=== PATIENT | female | born 1995 | race African-American/Black ===

== ENCOUNTER 2016-07-01 11:30 | Emergency (ER) | payer MEDICAID ==
[~2016-07-01] VITALS: Ht 152.4 cm; Wt 55.0 kg
[~2016-07-01 11:30] MED LIST: IBUP600 PO
[2016-07-01 11:32] VITALS: BP 123/73; PULSE 72; RESP 16; TEMP 98; O2SAT 98
--- NOTE | 2016-07-01 12:14 | PD ---
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 Patient denies fever, chills, urinary symptoms. Patient denies . Patient states she did have some similar symptoms in the past months ago. Patient states no new sexual partner, but she is "unsure of her boyfriend". Patient has no other constitutional symptoms. She has no known drug allergies. PFSH Past Medical History Medical History: Denies Significant Hx Hx Anticoagulant Therapy: No Cardiovascular Problems: No Chemotherapy: No Cerebrovascular Accident: No Diabetes: No Diminished Hearing: No Respiratory: No Immunizations Current: Yes ?: Unknown LMP: LAST WEEK Menopausal: No : 0 Para: 0 Miscarriage: 0 : 0 Past Surgical History Surgical History: No Previous Surgery Section: No Social History Alcohol Use: No (rarely) Tobacco Use: Yes Substance Use: No Allergies-Medications (Allergen,Severity, Reaction): Coded Allergies: Penicillin (Verified Allergy, Intermediate, Hives, 07/01/16) Reported Meds & Prescriptions Reported Meds & Active Scripts Active No Active Prescriptions or Reported Medications Review of Systems Except as stated in HPI: all other systems reviewed are Neg General / Constitutional: No: Fever Eyes: No: Visual changes HENT: No: Headaches Cardiovascular: No: Chest Pain or Discomfort Respiratory: No: Shortness of Breath Gastrointestinal: No: Abdominal Pain Genitourinary: No: Dysuria Musculoskeletal: No: Pain Skin: No Rash Neurologic: No: Weakness Psychiatric: No: Depression Endocrine: No: Polydipsia Hematologic/Lymphatic: No: Easy Bruising Physical Exam Narrative GENERAL: Patient appears in no acute distress. SKIN: Warm and dry. HEAD: Atraumatic. Normocephalic. EYES: Pupils equal and round. No scleral icterus. No injection or drainage. ENT: No nasal bleeding or discharge. Mucous membranes pink and moist. NECK: Trachea midline. No JVD. CARDIOVASCULAR: Regular rate and rhythm. RESPIRATORY: No accessory muscle use. Clear to auscultation. Breath sounds equal bilaterally. GASTROINTESTINAL: Abdomen soft, non-tender, nondistended. Hepatic and splenic margins not palpable. PELVIC: Pelvic exam performed with nursing truck driver rubbish collector. Outer genitalia appear within normal limits. No obvious rash. Pelvic exam shows no significant discharge. Viral cultures, wet prep, and GC chlamydia are obtained. MUSCULOSKELETAL: Extremities without clubbing, cyanosis, or edema. No obvious deformities. NEUROLOGICAL: Awake and alert. No obvious cranial nerve deficits. Motor grossly within normal limits. Five out of 5 muscle strength in the arms and legs. Normal speech. PSYCHIATRIC: Appropriate mood and affect; insight and judgment normal. Data Data Last Documented VS Vital Signs Date Time Temp Pulse Resp B/P Pulse Ox O2 Delivery O2 Flow Rate FiO2 07/01/16 11:32 98.0 72 16 123/73 98 Room Air Orders Complete Blood Count With Diff (07/01/16 12:00) Comprehensive Metabolic Panel (07/01/16 12:00) Gc And Chlamydia Pcr (07/01/16 12:00) Wet Prep Profile (07/01/16 12:00) Urinalysis - C+S If Indicated (07/01/16 12:00) Herpes Simplex Virus Culture (07/01/16 12:00) Ed Urine Pregnancytest Poc (07/01/16 12:00) Urine Culture (07/01/16 12:15) Ceftriaxone Inj (Rocephin Inj) (07/01/16 13:00) Ceftriaxone Inj (Rocephin Inj) (07/01/16 13:15) Azithromycin (Zithromax) (07/01/16 14:15) Labs Laboratory Tests Test 07/01/16 07/01/16 07/01/16 12:15 12:31 13:00 Urine Color YELLOW Urine Turbidity CLEAR Urine pH 6.5 Urine Specific [place] 1.026 Urine Protein TRACE mg/dL Urine Glucose (UA) NEG mg/dL Urine Ketones NEG mg/dL Urine Occult Blood NEG Urine Nitrite NEG Urine Bilirubin NEG Urine Urobilinogen LESS THAN 2.0 MG/DL Urine Leukocyte Esterase LARGE Urine RBC 4 /hpf Urine WBC 12 /hpf Urine Squamous Epithelial 3 /hpf Cells Urine Bacteria RARE /hpf Urine Mucus MOD /lpf Microscopic Urinalysis Comment CULTURE INDICATED White Blood Count 7.9 TH/MM3 Red Blood Count 5.37 MIL/MM3 Hemoglobin 11.3 GM/DL Hematocrit 35.5 % Mean Corpuscular Volume 66.1 FL Mean Corpuscular Hemoglobin 21.0 PG Mean Corpuscular Hemoglobin 31.8 % Concent Red Cell Distribution Width 16.8 % Platelet Count 432 TH/MM3 Mean Platelet Volume 7.9 FL Neutrophils (%) (Auto) 51.3 % Lymphocytes (%) (Auto) 37.8 % Monocytes (%) (Auto) 8.5 % Eosinophils (%) (Auto) 1.8 % Basophils (%) (Auto) 0.6 % Neutrophils # (Auto) 4.1 TH/MM3 Lymphocytes # (Auto) 3.0 TH/MM3 Monocytes # (Auto) 0.7 TH/MM3 Eosinophils # (Auto) 0.1 TH/MM3 Basophils # (Auto) 0.0 TH/MM3 CBC Comment AUTO DIFF Differential Comment AUTO DIFF CONFIRMED Platelet Estimate HIGH Platelet Morphology Comment NORMAL Ovalocytes 1+ Keratocytes OCC Sodium Level 140 MEQ/L Potassium Level 4.0 MEQ/L Chloride Level 104 MEQ/L Carbon Dioxide Level 28.2 MEQ/L Anion Gap 8 MEQ/L Blood Urea Nitrogen 8 MG/DL Creatinine 0.68 MG/DL Estimat Glomerular Filtration 132 ML/MIN Rate Random Glucose 80 MG/DL Calcium Level 8.5 MG/DL Total Bilirubin 0.2 MG/DL Aspartate Amino Transf 8 U/L (AST/SGOT) Alanine Aminotransferase 21 U/L (ALT/SGPT) Alkaline Phosphatase 75 U/L Total Protein 7.5 GM/DL Albumin 3.5 GM/DL Clue Cells (Wet Prep) NONE SEEN Vaginal Trichomonas (Wet Prep) NONE SEEN Vaginal Yeast (Wet Prep) NONE SEEN MDM Medical Decision Making Medical Screen Exam Complete: Yes Emergency Medical Condition: Yes Differential Diagnosis Urinary tract infection. Dysuria. Pelvic inflammatory disease. Gonorrhea, chlamydia. Herpes. Narrative Course Patient is medically stable at time of exam. Labs ordered including CBC, CMP, and urinalysis. Wet prep, GC chlamydia, and herpes viral culture sent. CBC and CMP are within normal limits. Urinalysis is suggestive of urinary tract infection. Patient given 500 mg Rocephin IM. Wet prep was negative for clue cells, yeast, or Trichomonas. Patient is given azithromycin 1200 mg by mouth once. Patient was discharged out with Keflex twice a day 7 days. GC and chlamydia is pending, viral culture is pending, as well as urinary culture. Patient is recommended [facility] for further evaluation and treatment as needed. Patient can always return to the emergency Department with worsening symptoms if necessary. Diagnosis Primary Impression: Dysuria Additional Impression: Vaginal discharge Referrals: [facility] 1 week Patient Instructions: Dysuria (ED), General Instructions, Sexually Transmitted Diseases (ED) Med/Other Pt SpecificInfo: Prescription(s) given Scripts Cephalexin (Keflex)500 Mg [id number] Mg PO BID #14 CAP Prov:Jo Ann Diaz MD 07/01/16 Disposition: 01 DISCHARGE HOME Condition: Stable Javad Gill Jul 01, 2016 12:14
[2016-07-01 12:37] LABS: BACTERIA, URINE RARE /hpf; BLOOD, URINE NEG (NEG); GLUCOSE,URINE NEG (NEG); KETONE, URINE NEG (NEG); MUCUS URINE MOD /lpf (OCC); NITRITE,URINE NEG (NEG); PH, URINE 6.5 (5.0-8.5); SQUAMOUS EPITHELIAL CELL URINE 3 /hpf (0-5); URINE COLOR YELLOW (YELLW/STRAW)
[2016-07-01 12:40] LABS: COMMENT (UR) CULTURE INDICATED; CULTURE IF INDICATED CULTURE INDICATED
[2016-07-01 12:58] LABS: AUTOMATED NEUTROPHIL # 4.1 TH/MM3 (1.8-7.7); BASOPHIL % 0.6 % (0.0-2.0); EOSINOPHIL # 0.1 TH/MM3 (0-0.4); EOSINOPHIL % 1.8 % (0.0-4.0); HEMATOCRIT 35.5 % (35.0-46.0); LYMPH % 37.8 % (9.0-44.0); MEAN CELL VOLUME 66.1 FL (80.0-100.0); MEAN CORPUSCULAR HGB CONC 31.8 % (32.0-36.0); MONO % 8.5 % (0.0-8.0); NEUT % 51.3 % (16.0-70.0); PLATELET COUNT 432 TH/MM3 (150-450); RED BLOOD COUNT 5.37 MIL/MM3 (4.00-5.30); RED CELL DISTRIBUTION WIDTH 16.8 % (11.6-17.2); WHITE BLOOD COUNT 7.9 TH/MM3 (4.0-11.0)
[2016-07-01] MEDS ORDERED: cefTRIAXone INJ 1,000 MG in SODIUM CHLORIDE 0.9% INJ 100 ML IV ONE (13:00)
[2016-07-01 13:03] LABS: HEMO FLAGS AUTO DIFF
[2016-07-01 13:10] LABS: ANION GAP 8 MEQ/L (5-15); AST (GOT) 8 U/L (15-37); BICARBONATE 28.2 MEQ/L (21.0-32.0); BLOOD UREA NITROGEN 8 MG/DL (7-18); CHLORIDE 104 MEQ/L (98-107); GLOMERULAR FILTRATION RATE 132 ML/MIN (>89); SODIUM (NA) 140 MEQ/L (136-145)
[2016-07-01 13:13] LABS: ALKALINE PHOSPHATASE 75 U/L (45-117); ALT (GPT) 21 U/L (10-53); TOTAL BILIRUBIN ADULT 0.2 MG/DL (0.2-1.0)
[2016-07-01 13:38] LABS: KERATOCYTES OCC (NORMAL); OVALOCYTES 1+ (NORMAL); PLATELET ESTIMATE SMEAR HIGH (NORMAL); PLATELET MORPHOLOGY NORMAL (NORMAL); SCAN/DIFF AUTO DIFF CONFIRMED
[2016-07-01] MEDS ORDERED: CEPH-460 PO (14:09)
[2016-07-01] MEDS ORDERED: AZITHROMYCIN 600 MG TAB PO ONE (14:15)
[2016-07-01 14:16] VITALS: BP 124/82; PULSE 66; RESP 20; O2SAT 100
[2016-07-01] MEDS ORDERED: AZITHROMYCIN 250 MG TAB PO ONE (14:30)
[2016-07-01 15:20] VITALS: BP 120/74; PULSE 79; RESP 20; O2SAT 100
[2016-07-01 18:38] LABS: CHLAMYDIA PCR NOT DETECTED (NOT DETECT); NEISSERIA PCR NOT DETECTED (NOT DETECT)
== END 2016-07-01 15:31 | disposition home or self-care (01) ==
LOC: NEPE 11:30
DX: R30.0 Dysuria (principal); N89.8 Other specified noninflammatory disorders of vagina; Z72.0 Tobacco use
CPT/HCPCS: 80053; 81001; 84703; 85025; 87086; 87210; 87255; 87491; 87591; 96372; 99283; J0696

== ENCOUNTER 2017-02-28 15:05 | Emergency (ER) | payer SELFPAY ==
[~2017-02-28] VITALS: Ht 152.4 cm; Wt 58.0 kg
[~2017-02-28 15:05] MED LIST changes: +CEPH-460 PO; -IBUP600 PO
[2017-02-28 15:06] VITALS: BP 115/70; PULSE 96; RESP 20; TEMP 98.6; O2SAT 98
--- NOTE | 2017-02-28 15:53 | PD ---
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 Patient believes she may be having a reaction to her son did so. She has been using the soap for a long time without any difficulty. Denies any vaginal discharge, abdominal pain, pelvic pain, urinary symptoms, or vaginal irritation. States the itching feels like it is on the inside. She has not done anything for her symptoms. She is sexually active and does not use control. PFSH Past Medical History Medical History: Denies Significant Hx Hx Anticoagulant Therapy: No Cardiovascular Problems: No Chemotherapy: No Cerebrovascular Accident: No Diabetes: No Diminished Hearing: No Respiratory: No Immunizations Current: Yes Tetanus Vaccination: > 5 Years ?: Not LMP: 02/24/17 Menopausal: No : 0 Para: 0 Miscarriage: 0 : 0 Past Surgical History Surgical History: No Previous Surgery Section: No Social History Alcohol Use: No (RARE) Tobacco Use: Yes Substance Use: Yes (CANNABIS ) Allergies-Medications (Allergen,Severity, Reaction): Coded Allergies: penicillin G (Unverified Allergy, Intermediate, 02/28/17) DENIES Reported Meds & Prescriptions Reported Meds & Active Scripts Active No Active Prescriptions or Reported Medications Review of Systems Except as stated in HPI: all other systems reviewed are Neg Physical Exam Narrative GENERAL: Well-nourished, well-developed female in no acute distress. Afebrile. Ambulatory. SKIN: Focused skin assessment warm/dry. HEAD: Normocephalic. EYES: No scleral icterus. No injection or drainage. NECK: Supple, trachea midline. No JVD or lymphadenopathy. CARDIOVASCULAR: Regular rate and rhythm without murmurs, gallops, or rubs. RESPIRATORY: Breath sounds equal bilaterally. No accessory muscle use. GENITOURINARY: Examined in the presence of a nurse. Normal external genitalia without lesions or erythema. No vaginal discharge. No pelvic tenderness to palpation. Data Data Last Documented VS Vital Signs Date Time Temp Pulse Resp B/P (MAP) Pulse Ox O2 Delivery O2 Flow Rate FiO2 02/28/17 15:06 98.6 96 20 115/70 (85) 98 MDM Medical Decision Making Medical Screen Exam Complete: Yes Emergency Medical Condition: Yes Medical Record Reviewed: Yes Differential Diagnosis Vaginitis, yeast infection, atopic dermatitis, allergic reaction Narrative Course 21-year-old female presents to the emergency room for evaluation of vaginal itching that started last night. Patient believes she may be having a reaction to this that she has been using for a long time. Denies any vaginal discharge, pelvic pain, or dysuria. She was examined in the presence of a nurse. Physical exam is unremarkable. No lesions, erythema, discharge, or foul odor. test is negative. I suspect early vaginal candidiasis. She was told to stop using the soap. Patient be discharged with prescription for Diflucan and told to follow-up with a provider network manager or return for worsening symptoms. She understands and agrees to plan. Diagnosis Primary Impression: Vaginal itching Referrals: Primary Care Physician Additional Instructions: Diflucan as directed. As discussed, use control to avoid . Follow-up the provider network manager. Return for worsening symptoms. Scripts No Active Prescriptions or Reported Meds Disposition: 01 DISCHARGE HOME Condition: Stable Leslie Ortega Feb 28, 2017 15:53
[2017-02-28] MEDS ORDERED: DIFL150T PO (15:54)
== END 2017-02-28 16:07 | disposition home or self-care (01) ==
LOC: NEPD 15:05
DX: N89.8 Other specified noninflammatory disorders of vagina (principal); Z72.0 Tobacco use
CPT/HCPCS: 99283

== ENCOUNTER 2017-06-12 17:12 | Emergency (ER) | payer SELFPAY ==
[~2017-06-12 17:12] MED LIST changes: -CEPH-460 PO; +DIFL150T PO
[2017-06-12 17:19] VITALS: BP 123/77; PULSE 92; RESP 12; TEMP 98; O2SAT 98
[2017-06-12] MEDS ORDERED: FLUT1SPR5 EACH NARE (20:53)
--- NOTE | 2017-06-12 20:54 | PD ---
HPI Chief Complaint: Cold / Flu Symptoms Time Seen by Provider: 19:30 Travel History International Travel<30 days: No Contact w/Intl Traveler<30days: No Traveled to known affect area: No History of Present Illness HPI 22-year-old female presents emergency department for evaluation of runny nose, cough and sore throat that started on . Patient has any fevers, chills, malaise. The cough is intermittent and nonproductive in nature. She denies any cigarette use, alcohol use or drug use. Patient denies any nausea, vomiting, vomiting or diarrhea. Patient has not tried any [id number] remedies at this time. PFSH Past Medical History Medical History: Denies Significant Hx Hx Anticoagulant Therapy: No Cardiovascular Problems: No Chemotherapy: No Cerebrovascular Accident: No Diabetes: No Diminished Hearing: No Respiratory: No Immunizations Current: Yes Tetanus Vaccination: Unknown ?: Not LMP: 06/11/17 Menopausal: No : 0 Para: 0 Miscarriage: 0 : 0 Past Surgical History Surgical History: No Previous Surgery Section: No Social History Alcohol Use: No (RARE) Tobacco Use: No Substance Use: Yes (CANNABIS ) Allergies-Medications (Allergen,Severity, Reaction): Coded Allergies: penicillin G (Unverified Allergy, Intermediate, 06/12/17) DENIES Reported Meds & Prescriptions Reported Meds & Active Scripts Active Flonase Nasal Coila (Fluticasone Nasal Coila) 50 Mcg/Act Coila 50 Mcg EACH NARE BID Review of Systems Except as stated in HPI: all other systems reviewed are Neg Physical Exam Narrative GENERAL: Well-nourished, well-developed 22-year-old female patient in no acute distress. Nontoxic appearing. SKIN: Focused skin assessment warm/dry. HEAD: Normocephalic. Atraumatic. EYES: No scleral icterus. No injection or drainage. THROAT: Mild pharyngeal injection and tonsillar hypertrophy, No exudates. Airway is patent. ENT: Mucosa pink and moist. No erythema or exudates. No uvular edema. No uvular , palatal, or tonsillar deviation. Airway patent. Nasal turbinates appear hypertrophic with small amount of purulent drainage. NECK: Supple, trachea midline. No JVD or lymphadenopathy. CARDIOVASCULAR: Regular rate and rhythm without murmurs, gallops, or rubs. RESPIRATORY: Breath sounds equal bilaterally. No accessory muscle use. GASTROINTESTINAL: Abdomen soft, non-tender, nondistended. MUSCULOSKELETAL: No cyanosis, or edema. BACK: Nontender without obvious deformity. No CVA tenderness. Data Data Last Documented VS Vital Signs Date Time Temp Pulse Resp B/P (MAP) Pulse Ox O2 Delivery O2 Flow Rate FiO2 06/12/17 21:05 06/12/17 17:19 98.0 92 12 98 Orders Orders Ed Discharge Order (06/12/17 20:54) MDM Medical Decision Making Medical Screen Exam Complete: Yes Emergency Medical Condition: Yes Differential Diagnosis Differential diagnoses include URI, viral syndrome, pharyngitis, bronchitis Narrative Course Upon assessment patient's symptoms and presentation are consistent with viral syndrome. Patient is afebrile at our facility and states she has not been running a fever at home. Patient is discharged home with prescription for Flonase for nasal congestion, instructions for supportive care and to return to the emergency Department with any worsening condition. Diagnosis Primary Impression: Viral syndrome Referrals: Primary Care Physician Patient Instructions: General Instructions, Viral Syndrome (ED) Additional Instructions: Please return to emergency department if your symptoms return or worsen. Follow up with your primary care provider. Take medications as prescribed. Alternate ibuprofen and Tylenol as needed for pain or fevers. Supportive care, stay hydrated, get enough rest, diet as tolerated. Med/Other Pt SpecificInfo: Prescription(s) given Scripts Fluticasone Nasal Coila (Flonase Nasal Coila) 50 Mcg/Act Coila 50 MCG EACH NARE BID for Allergies, #1 BOTTLE 0 Refills Prov: Andreea James 06/12/17 Disposition: 01 DISCHARGE HOME Condition: Stable Andreea James Jun 12, 2017 20:54
== END 2017-06-12 21:17 | disposition home or self-care (01) ==
LOC: NEPK 17:12
DX: B34.9 Viral infection, unspecified (principal)
CPT/HCPCS: 99283

== ENCOUNTER 2017-06-27 17:38 | Emergency (ER) | payer SELFPAY ==
[~2017-06-27] VITALS: Ht 152.4 cm; Wt 59.1 kg
[~2017-06-27 17:38] MED LIST changes: -DIFL150T PO; +FLUT1SPR5 EACH NARE
[2017-06-27 17:40] VITALS: BP 120/70; PULSE 82; RESP 12; TEMP 98.2; O2SAT 97
[2017-06-27 18:56] LABS: BACTERIA, URINE RARE /hpf; BILIRUBIN, URINE NEG (NEG); BLOOD, URINE NEG (NEG); GLUCOSE,URINE NEG (NEG); KETONE, URINE NEG (NEG); MUCUS URINE FEW /lpf (OCC); NITRITE,URINE NEG (NEG); SQUAMOUS EPITHELIAL CELL URINE 10 /hpf (0-5); URINE COLOR YELLOW (YELLW/STRAW); URINE LEUKOCYTE ESTERASE LARGE (NEG)
--- NOTE | 2017-06-27 21:29 | PD ---
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 Denies any trauma. No fever or chills. She has not taken anything for this. Pain is moderate in severity. Patient also reports vaginal discharge worsening of the last 2 weeks. States that she has been treated for gonorrhea in the past but her partner was not treated. She continues to be with a partner. Denies any lower abdominal pain. Denies any her nares symptoms. No fever or chills. She has no other symptoms to report. PFSH Past Medical History Medical History: Denies Significant Hx Hx Anticoagulant Therapy: No Cardiovascular Problems: No Chemotherapy: No Cerebrovascular Accident: No Diabetes: No Diminished Hearing: No Respiratory: No Immunizations Current: Yes ?: Unknown LMP: 06/09/17 Menopausal: No : 0 Para: 0 Miscarriage: 0 : 0 Past Surgical History Surgical History: No Previous Surgery Section: No Social History Alcohol Use: No (RARE) Tobacco Use: No Substance Use: Yes (CANNABIS ) Allergies-Medications (Allergen,Severity, Reaction): Coded Allergies: penicillin G (Unverified Allergy, Intermediate, 06/12/17) DENIES Reported Meds & Prescriptions Reported Meds & Active Scripts Active No Active Prescriptions or Reported Medications Review of Systems Except as stated in HPI: all other systems reviewed are Neg Physical Exam Narrative GENERAL: Well-nourished female patient, in no acute distress. SKIN: Focused skin assessment warm/dry. HEAD: Atraumatic. Normocephalic. No tenderness elicited palpation over the mastoid EARS: Bilateral pinnae and external canals appear within normal limits. Bilateral tympanic membranes without erythema, dullness or perforation. EYES: Pupils equal and round. No scleral icterus. No injection or drainage. ENT: No nasal bleeding or discharge. Mucous membranes pink and moist. NECK: Trachea midline. No JVD. CARDIOVASCULAR: Regular rate and rhythm. No murmur appreciated. RESPIRATORY: No accessory muscle use. Clear to auscultation. Breath sounds equal bilaterally. GASTROINTESTINAL: Abdomen soft, non-tender, nondistended. Hepatic and splenic margins not palpable. GENITOURINARY: Normal external genitalia without lesions or erythema. Vaginal vault thick yellow white discharge and drainage. Cervical os is friable, with similar discharge. No cervical motion tenderness. Uterus nontender and nonenlarged. Bilateral adnexa nontender without masses. MUSCULOSKELETAL: No obvious deformities. No clubbing. No cyanosis. No edema. NEUROLOGICAL: Awake and alert. No obvious cranial nerve deficits. Motor grossly within normal limits. Normal speech. PSYCHIATRIC: Appropriate mood and affect; insight and judgment normal. Data Data Last Documented VS Vital Signs Date Time Temp Pulse Resp B/P (MAP) Pulse Ox O2 Delivery O2 Flow Rate FiO2 06/27/17 17:40 98.2 82 12 120/70 (87) 97 Orders Orders Urinalysis - C+S If Indicated (06/27/17 17:47) Ed Urine Pregnancytest Poc (06/27/17 17:47) Gc And Chlamydia Pcr (06/27/17 22:15) Wet Prep Profile (06/27/17 22:15) Ed Discharge Order (06/28/17 00:14) Labs Laboratory Tests Test 06/27/17 18:25 06/27/17 22:15 Urine Color YELLOW Urine Turbidity HAZY Urine pH 6.0 Urine Specific [place] 1.023 Urine Protein TRACE mg/dL Urine Glucose (UA) NEG mg/dL Urine Ketones NEG mg/dL Urine Occult Blood NEG Urine Nitrite NEG Urine Bilirubin NEG Urine Urobilinogen LESS THAN 2.0 MG/DL Urine Leukocyte Esterase LARGE Urine RBC 3 /hpf Urine WBC 6 /hpf Urine Squamous Epithelial Cells 10 /hpf Urine Bacteria RARE /hpf Urine Mucus FEW /lpf Microscopic Urinalysis Comment CULT NOT INDICATED Clue Cells (Wet Prep) NONE SEEN Vaginal Trichomonas (Wet Prep) NONE SEEN Vaginal Yeast (Wet Prep) NONE SEEN Chlamydia trachomatis DNA (PCR) NOT DETECTED Neisseria gonorrhoeae DNA (PCR) DETECTED MDM Medical Decision Making Medical Screen Exam Complete: Yes Emergency Medical Condition: Yes Medical Record Reviewed: Yes Differential Diagnosis Cystitis versus vaginitis versus urethritis versus STD Narrative Course 22-year-old female presents to emergency department for evaluation of right ear pain and vaginal discharge. Patient appears without distress. She does have a thick yellow-white discharge in the vaginal vault. Cervix is friable with an atypical appearance. I discussed with her the importance of following up with gynecology for further evaluation of this. GC PCR is sent. I have offered to treat her empirically. Patient does not want treated until it results. She'll be discharged at this time. 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
== END 2017-06-28 00:29 | disposition home or self-care (01) ==
LOC: NEPD 17:38
DX: N89.8 Other specified noninflammatory disorders of vagina (principal); H92.01 Otalgia, right ear
CPT/HCPCS: 81001; 84703; 87210; 87491; 87591; 99284

== ENCOUNTER 2017-06-28 15:27 | Emergency (ER) | payer SELFPAY ==
[~2017-06-28] VITALS: Ht 152.4 cm; Wt 58.0 kg
[2017-06-28 15:28] VITALS: BP 126/66; PULSE 78; RESP 16; TEMP 98.1; O2SAT 100
--- NOTE | 2017-06-28 16:10 | PD ---
HPI Chief Complaint: Abdominal Pain Time Seen by Provider: 16:02 Travel History International Travel<30 days: No Contact w/Intl Traveler<30days: No Traveled to known affect area: No History of Present Illness HPI 22-year-old female who presents to emergency department for treatment for gonorrhea. She was seen here in the emergency department yesterday and refused empirical treatment until her tests results came back. She has had vaginal discharge for the past 2 weeks. She has been treated for gonorrhea in the past and states that her boyfriend was not treated. Denies abdominal pain, fever, vomiting. Not taking any medications or tried any treatments to alleviate her symptoms. Allergies to penicillin. No primary care provider. No known aggravating or relieving factors. Symptoms are mild in severity. Has no other medical complaints. No other modifying factors or associated signs and symptoms. PFSH Past Medical History Hx Anticoagulant Therapy: No Cardiovascular Problems: No Chemotherapy: No Cerebrovascular Accident: No Diabetes: No Diminished Hearing: No Respiratory: No Immunizations Current: Yes ?: Not LMP: END OF MAY 2017 Menopausal: No : 0 Para: 0 Miscarriage: 0 : 0 Past Surgical History Section: No Social History Alcohol Use: No (RARE) Tobacco Use: No Substance Use: Yes (CANNABIS ) Allergies-Medications (Allergen,Severity, Reaction): Coded Allergies: penicillin G (Unverified Allergy, Intermediate, 06/12/17) DENIES Reported Meds & Prescriptions Reported Meds & Active Scripts Active No Active Prescriptions or Reported Medications Review of Systems Except as stated in HPI: all other systems reviewed are Neg Physical Exam Narrative GENERAL: Well-nourished, well-developed female patient, in no acute distress SKIN: Warm and dry. HEAD: Atraumatic. Normocephalic. EYES: Pupils equal and round. No scleral icterus. No injection or drainage. ENT: Mucosa pink and moist. Airway patent. NECK: Trachea midline. CARDIOVASCULAR: Regular rate. RESPIRATORY: No accessory muscle use. GASTROINTESTINAL: Flat. MUSCULOSKELETAL: No obvious deformities. No clubbing. No cyanosis. No edema. NEUROLOGICAL: Awake and alert. Oriented 3. No obvious cranial nerve deficits. Motor grossly within normal limits. Normal speech. PSYCHIATRIC: Appropriate mood and affect; insight and judgment normal. Data Data Last Documented VS Vital Signs Date Time Temp Pulse Resp B/P (MAP) Pulse Ox O2 Delivery O2 Flow Rate FiO2 06/28/17 15:28 98.1 78 16 126/66 (86) 100 Room Air Orders Orders Ceftriaxone Inj (Rocephin Inj) (06/28/17 16:15) Lidocaine 1% Inj (50 Ml) (Xylocaine 1% I (06/28/17 16:15) Azithromycin (Zithromax) (06/28/17 16:15) Ed Discharge Order (06/28/17 16:10) MDM Medical Decision Making Medical Screen Exam Complete: Yes Emergency Medical Condition: Yes Medical Record Reviewed: Yes Differential Diagnosis Gonorrhea, sexually transmitted infection, medical clearance Narrative Course 22-year-old female that was seen yesterday presents for positive gonorrhea test. She refused treatment until her test resulted. She has no other major medical complaints. Rocephin and azithromycin administered in the ER. Patient was provided information for [facility] now and [facility] for follow-up. Instructed patient to follow up with primary care provider. Patient verbalizes understanding and agreement with treatment plan. Patient is medically cleared and stable for discharge. Discussed reasons to return to the emergency department. Patient agrees with treatment plan. The patients vital signs are stable and the patient is stable for outpatient follow-up and treatment. Patient discharged home, stable and in no acute distress. Diagnosis Primary Impression: Gonorrhea Referrals: [facility] Primary Care Physician [facility] Dept. Patient Instructions: General Instructions, Gonorrhea (ED), Sexually Transmitted Diseases (ED) Additional Instructions: No sexual activity with your partner/s for 14 days No sexual activity with your partner/s for 14 days after he or she has been treated Inform all sexual partners within the past 3-6 months that they need to be evaluated and treated Use condoms every time you have sex Follow-up with primary care provider Follow-up with [facility] Follow-up with natural resource specialist Return to the emergency department immediately with worsening of symptoms Med/Other Pt SpecificInfo: No Change to Meds, No Meds Exist/No RX given Scripts No Active Prescriptions or Reported Meds Disposition: 01 DISCHARGE HOME Condition: Stable Anel Nolan Jun 28, 2017 16:10
[2017-06-28] MEDS ORDERED: LIDOCAINE HCL 1% 50 ML VIAL IM ONE (16:15)
[2017-06-28] MEDS ORDERED: AZITHROMYCIN 250 MG TAB PO ONE (16:15)
[2017-06-28] MEDS ORDERED: cefTRIAXone 250 MG VIAL IM ONE (16:15)
== END 2017-06-28 16:44 | disposition home or self-care (01) ==
LOC: NEPK 15:27
DX: A54.9 Gonococcal infection, unspecified (principal); Z88.0 Allergy status to penicillin
CPT/HCPCS: 96372; 99284; J0696